=== PATIENT | male | born 2000 | race Two or more races ===

== ENCOUNTER 2023-10-24 10:09 | Emergency (ER) | payer SELFPAY ==
[~2023-10-24] VITALS: Ht 172.7 cm; Wt 121.7 kg
[2023-10-24 10:45] VITALS: BP 166/102; PULSE 74; RESP 16; O2SAT 94
[2023-10-24] MEDS: ACETAMINOPHEN 500 MG TAB PO ONE (10:56)
[2023-10-24 12:50] VITALS: TEMP 98.7
== END 2023-10-24 14:51 | disposition left against medical advice (07) ==
LOC: ER 10:09
DX: M25.531 Pain in right wrist (principal); M25.431 Effusion, right wrist; Z53.21 Procedure and treatment not carried out due to patient leaving prior to being seen by health care provider